=== PATIENT | female | born 1930 ===

== ENCOUNTER 2018-04-16 08:42 | Day surgery (SDC) | payer MEDICARE, MEDICAID ==
[2018-04-16 09:34] VITALS: O2SAT 100
[2018-04-16] MEDS ORDERED: Propofol 10 mg/ml Inj (20 ML) ONE (12:50)
[2018-04-16 13:47] VITALS: TEMP 96.9
[2018-04-16 15:04] VITALS: BP 119/68; PULSE 84; RESP 15
== END 2018-04-16 14:50 | disposition home or self-care (01) ==
LOC: C.ENDO 08:42
PROVIDERS: ATTEND Internal Medicine Gastroenterology
DX: Z12.11 Encounter for screening for malignant neoplasm of colon (principal); D12.0 Benign neoplasm of cecum; D12.4 Benign neoplasm of descending colon; D12.7 Benign neoplasm of rectosigmoid junction; D12.5 Benign neoplasm of sigmoid colon
CPT/HCPCS: 45380; 82948; 88305; J2704